=== PATIENT | female | born 2000 | race African-American/Black ===

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

== ENCOUNTER 2022-01-05 20:54 | Emergency (ER) | payer MEDICAID, OTHER ==
[2022-01-05] MEDS ORDERED: diphenhydrAMINE 50 MG/ML VIAL ONE (21:47)
[2022-01-05] MEDS ORDERED: Metoclopramide HCl 10 MG/2 ML VIAL ONE (21:48)
[2022-01-05 22:42] LABS: Bilirubin Neg (Negative); Blood, Urine Negative (Negative); Clarity Clear (Clear); Glucose, Urine (Dipstick) Normal (Negative); Ketone, Urine Negative (Negative); Leukocyte Negative (Negative); Nitrite Negative (Negative); Protein, Urine (Dipstick) Negative (Neg-Trace); Specific Gravity, Urine 1.005 (1.002-1.036); Urobilinogen Normal mg/dL (Less than 2)
== END 2022-01-05 22:40 | disposition home or self-care (01) ==
LOC: CSHERS 20:54
DX: O99.891 Other specified diseases and conditions complicating pregnancy (principal); R51.9 Headache, unspecified; O47.03 False labor before 37 completed weeks of gestation, third trimester; Z3A.32 32 weeks gestation of pregnancy
CPT/HCPCS: 81003; 96365; 96375; J1200; J2765

== ENCOUNTER 2022-01-05 22:18 | Day surgery (SDC) | payer OTHER ==
[2022-01-05 23:41] VITALS: BMI 22.4
[2022-01-06] MEDS ORDERED: hydrALAZINE 20 MG/ML VIAL SLOW IVP PRN (01:11)
== END 2022-01-06 01:15 | disposition home or self-care (01) ==
LOC: CSHLD/OP 22:18
PROVIDERS: ATTEND Family Medicine
DX: O47.03 False labor before 37 completed weeks of gestation, third trimester (principal); O99.891 Other specified diseases and conditions complicating pregnancy; M54.50 Low back pain, unspecified; R51.9 Headache, unspecified; Z3A.32 32 weeks gestation of pregnancy

== ENCOUNTER 2022-01-10 08:10 | Day surgery (SDC) | payer OTHER ==
[2022-01-10 09:12] VITALS: BMI 22.4
[2022-01-10] MEDS ORDERED: Acetaminophen 500 MG TAB PO ONE (09:12)
[2022-01-10] MEDS ORDERED: hydrALAZINE 20 MG/ML VIAL SLOW IVP PRN (09:12)
[2022-01-10] MEDS ORDERED: Ondansetron PF 4 MG/2 ML Vial IVP PRN (09:12)
[2022-01-10] MEDS ORDERED: Lactated Ringer's 1,000 ML IV SCH (09:15)
[2022-01-10] MEDS ORDERED: Ondansetron PF 4 MG/2 ML Vial ONE (09:21)
[2022-01-10] MEDS ORDERED: Promethazine HCl 25 MG/ML VIAL IVPB PRN (11:03)
[2022-01-10 11:08] LABS: Bilirubin Neg (Negative); Blood, Urine Negative (Negative); Clarity Clear (Clear); Glucose, Urine (Dipstick) Normal (Negative); Ketone, Urine Negative (Negative); Leukocyte Negative (Negative); Nitrite Negative (Negative); Protein, Urine (Dipstick) Negative (Neg-Trace); Specific Gravity, Urine 1.005 (1.002-1.036); Urobilinogen Normal mg/dL (Less than 2)
[2022-01-10 11:17] LABS: Urine Culture Reflex No No
[2022-01-10 11:58] LABS: Bacteria/HPF Rare-Few HPF (None Seen); RBC/HPF 0-3 HPF (0-3); Squamous Epithelial 0-3 HPF (0-3); WBC/HPF 0-3 HPF (0-3)
== END 2022-01-10 13:21 | disposition home or self-care (01) ==
LOC: CSHLD/OP 08:10
PROVIDERS: ATTEND Family Medicine
DX: O26.893 Other specified pregnancy related conditions, third trimester (principal); R10.9 Unspecified abdominal pain; O21.2 Late vomiting of pregnancy; O99.513 Diseases of the respiratory system complicating pregnancy, third trimester; J45.909 Unspecified asthma, uncomplicated; Z3A.33 33 weeks gestation of pregnancy; Z79.899 Other long term (current) drug therapy; Z88.5 Allergy status to narcotic agent; Z90.49 Acquired absence of other specified parts of digestive tract
CPT/HCPCS: 81001; 96361; 96365; 96375; 99284; J2405; J2550

== ENCOUNTER 2022-01-13 22:41 | Day surgery (SDC) | payer OTHER ==
[2022-01-13] MEDS ORDERED: hydrALAZINE 20 MG/ML VIAL SLOW IVP PRN (22:44)
[2022-01-13] MEDS ORDERED: Lactated Ringer's 1,000 ML IV SCH (22:45)
[2022-01-13] MEDS ORDERED: Promethazine HCl 25 MG/ML VIAL IM SCH (23:00)
[2022-01-13 23:21] LABS: Bilirubin Neg (Negative); Blood, Urine Negative (Negative); Clarity Clear (Clear); Glucose, Urine (Dipstick) Normal (Negative); Ketone, Urine Negative (Negative); Leukocyte Negative (Negative); Nitrite Negative (Negative); Protein, Urine (Dipstick) Negative (Neg-Trace)
[2022-01-13 23:30] LABS: Bacteria/HPF None Seen HPF (None Seen); RBC/HPF 0-3 HPF (0-3); WBC/HPF 0-3 HPF (0-3)
[2022-01-13] MEDS: Fentanyl 100 MCG/2 ML VIAL SLOW IVP PRN (23:52)
[2022-01-14] MEDS ORDERED: Fentanyl 100 MCG/2 ML VIAL SLOW IVP PRN (00:55)
[2022-01-14] MEDS ORDERED: Lactated Ringer's 1,000 ML IV SCH (01:00)
[2022-01-14] MEDS ORDERED: Fentanyl 100 MCG/2 ML VIAL ONE ×2 (08:25→10:33)
[2022-01-14 08:34] VITALS: BMI 23.1
[2022-01-14 09:01] LABS: Anion Gap 9 mmol/L (10-20); BUN (Urea Nitrogen) 9 mg/dL (8.4-21.0); Calc. Creatinine Clearance 148 mL/min (70-130); Calcium 8.3 mg/dL (7.8-10.44); Carbon Dioxide 23 mmol/L (22-29); Chloride 108 mmol/L (98-107); Estimated GFR 133; Glucose 71 mg/dL (70-105); Potassium 3.9 mmol/L (3.5-5.1); Sodium 136 mmol/L (136-145)
[2022-01-14] MEDS: Fentanyl 100 MCG/2 ML VIAL SLOW IVP PRN (10:51)
[2022-01-14] MEDS ORDERED: Acetaminophen 500 MG TAB PO SCH (13:00)
== END 2022-01-14 16:04 | disposition home health service (06) ==
LOC: CSHLD/OP 22:41
PROVIDERS: ATTEND Family Medicine
DX: O26.893 Other specified pregnancy related conditions, third trimester (principal); R10.9 Unspecified abdominal pain; R39.15 Urgency of urination; O21.2 Late vomiting of pregnancy; Z88.5 Allergy status to narcotic agent; O99.513 Diseases of the respiratory system complicating pregnancy, third trimester; J45.909 Unspecified asthma, uncomplicated; O99.891 Other specified diseases and conditions complicating pregnancy; N13.30 Unspecified hydronephrosis; Z3A.33 33 weeks gestation of pregnancy
CPT/HCPCS: 36415; 74176; 76770; 80048; 81001; J0595; J2550; J3010

== ENCOUNTER 2022-01-17 08:04 | Day surgery (SDC) | payer OTHER ==
[2022-01-17 08:51] VITALS: BMI 24.0
[2022-01-17] MEDS ORDERED: hydrALAZINE 20 MG/ML VIAL SLOW IVP PRN (09:49)
[2022-01-17 09:59] LABS: Bilirubin Neg (Negative); Blood, Urine Negative (Negative); Clarity Slightly Cloudy (Clear); Glucose, Urine (Dipstick) Normal (Negative); Ketone, Urine Negative (Negative); Leukocyte Negative (Negative); Nitrite Negative (Negative); Protein, Urine (Dipstick) Negative (Neg-Trace); Urobilinogen Normal mg/dL (Less than 2)
[2022-01-17] MEDS ORDERED: traMADol HCl 50 MG TAB PO SCH (10:00)
[2022-01-17 10:14] LABS: Bacteria/HPF 2+ HPF (None Seen); RBC/HPF 0-3 HPF (0-3)
[2022-01-17 10:15] LABS: Urine Culture Reflex No No
[2022-01-17] MEDS ORDERED: Promethazine 25 MG TAB PO SCH (11:00)
[2022-01-17 12:01] LABS: Bacteria/HPF None Seen HPF (None Seen); RBC/HPF None Seen HPF (0-3); Squamous Epithelial 0-3 HPF (0-3); WBC/HPF 0-3 HPF (0-3)
== END 2022-01-17 13:27 | disposition home or self-care (01) ==
LOC: CSHLD/OP 08:04
PROVIDERS: ATTEND Family Medicine
DX: O99.891 Other specified diseases and conditions complicating pregnancy (principal); N13.30 Unspecified hydronephrosis; Z3A.34 34 weeks gestation of pregnancy; O99.343 Other mental disorders complicating pregnancy, third trimester; F41.9 Anxiety disorder, unspecified; F31.9 Bipolar disorder, unspecified; O99.513 Diseases of the respiratory system complicating pregnancy, third trimester; J45.909 Unspecified asthma, uncomplicated; Z79.899 Other long term (current) drug therapy; Z88.5 Allergy status to narcotic agent; Z98.890 Other specified postprocedural states
CPT/HCPCS: 51701; 81001; 81015; 99284; Q0169

== ENCOUNTER 2022-01-25 15:02 | Day surgery (SDC) | payer MEDICAID, OTHER ==
[2022-01-25] MEDS ORDERED: hydrALAZINE 20 MG/ML VIAL SLOW IVP PRN (17:03)
[2022-01-25] MEDS ORDERED: Lactated Ringer's 1,000 ML IV SCH (17:15)
[2022-01-25] MEDS ORDERED: Acetaminophen/Codeine 30-300mg Tablet PO SCH (19:00)
[2022-01-25 19:20] LABS: Bilirubin Neg (Negative); Blood, Urine Negative (Negative); Clarity Clear (Clear); Glucose, Urine (Dipstick) Normal (Negative); Ketone, Urine Negative (Negative); Leukocyte Negative (Negative); Nitrite Negative (Negative); Protein, Urine (Dipstick) Negative (Neg-Trace)
[2022-01-25 19:43] LABS: Bacteria/HPF 2+ HPF (None Seen); RBC/HPF 0-3 HPF (0-3); Squamous Epithelial 0-3 HPF (0-3); WBC/HPF 0-3 HPF (0-3)
[2022-01-25 19:44] LABS: Mucous/LPF Rare LPF (<2+)
[2022-01-25] MEDS ORDERED: Mag-Al 1200 mg/1200 mg/30 ML UDCUP PO SCH (20:30)
== END 2022-01-25 21:35 | disposition home or self-care (01) ==
LOC: CSHLD/OP 15:02
PROVIDERS: ATTEND Family Medicine
DX: O99.283 Endocrine, nutritional and metabolic diseases complicating pregnancy, third trimester (principal); E86.0 Dehydration; O36.8130 Decreased fetal movements, third trimester, not applicable or unspecified; O99.891 Other specified diseases and conditions complicating pregnancy; G89.29 Other chronic pain; R10.32 Left lower quadrant pain; O99.513 Diseases of the respiratory system complicating pregnancy, third trimester; J45.909 Unspecified asthma, uncomplicated; Z3A.35 35 weeks gestation of pregnancy; Z88.5 Allergy status to narcotic agent; Z90.49 Acquired absence of other specified parts of digestive tract; Z79.899 Other long term (current) drug therapy
CPT/HCPCS: 81001

== ENCOUNTER 2022-01-28 03:38 | Observation (INO) | payer OTHER ==
[2022-01-28] MEDS ORDERED: hydrALAZINE 20 MG/ML VIAL SLOW IVP PRN (04:15)
[2022-01-28] MEDS ORDERED: Promethazine HCl 25 MG/ML VIAL IM PRN (04:15)
[2022-01-28] MEDS ORDERED: Ondansetron PF 4 MG/2 ML Vial IVP PRN (04:15)
[2022-01-28] MEDS ORDERED: Lactated Ringer's 1,000 ML IV SCH (04:15)
[2022-01-28 05:16] LABS: Mean Corpuscular Volume 77.3 fl (81.6-98.3); Mean Platelet Volume 11.4 fl (7.4-10.4); Platelet Count 191 10x3/uL (150-450); RBC Distribution Width 13.4 % (11.5-14.5); White Blood Cell (WBC) Count 9.3 10x3/uL (3.5-10.5)
[2022-01-28] MEDS: Ondansetron PF 4 MG/2 ML Vial IVP SCH ×4 (05:26→23:50)
[2022-01-28] MEDS: cefTRIAXone\\ROCEPHIN 1 GM in Sodium Chloride 0.9% 100 ML IVPB SCH (05:26)
[2022-01-28] MEDS: Lactated Ringer's 1,000 ML IV SCH ×3 (05:26→22:23)
[2022-01-28 05:40] VITALS: BMI 25.1
[2022-01-28 06:12] LABS: ALT (SGPT) 21 U/L (8-55); AST (SGOT) 21 U/L (5-30); Alkaline Phosphatase 191 U/L (40-100); Anion Gap 12 mmol/L (10-20); BUN (Urea Nitrogen) 8 mg/dL (8.4-21.0); Bilirubin, Total 0.3 mg/dL (0.2-1.2); Calc. Creatinine Clearance 160 mL/min (70-130); Calcium 8.2 mg/dL (7.8-10.44); Carbon Dioxide 22 mmol/L (22-29); Chloride 107 mmol/L (98-107); Estimated GFR 132; Globulin 3.2 g/dL (2.4-3.5); Glucose 71 mg/dL (70-105); Potassium 3.6 mmol/L (3.5-5.1); Protein, Total 6.2 g/dL (6.0-8.3); Sodium 137 mmol/L (136-145)
[2022-01-28 07:33] LABS: SARS-CoV-2 NAA Rapid Test Not Detected (NotDetected)
[2022-01-28] MEDS: Butorphanol Tartrate 1 MG/ML VIAL SLOW IVP PRN ×2 (08:23→14:02)
[2022-01-28 10:35] LABS: Amphetamine Not Detected (NotDetected); Barbiturates Screen Not Detected (NotDetected); Benzodiazepine Screen Not Detected (NotDetected); Cocaine Metabolite Screen Not Detected (NotDetected); Methadone Not Detected (NotDetected); Methamphetamine Not Detected (NotDetected); Opiate Screen Not Detected (NotDetected); Oxycodone Screen Not Detected (NotDetected); Phencyclidine (PCP) Not Detected (NotDetected); THC/Cannabinoid Screen Not Detected (NotDetected); Tricyclic Screen Not Detected (NotDetected)
[2022-01-29] MEDS ORDERED: Acetaminophen/Codeine 30-300mg Tablet PO SCH (03:15)
[2022-01-29] MEDS: cefTRIAXone\\ROCEPHIN 1 GM in Sodium Chloride 0.9% 100 ML IVPB SCH (05:42)
[2022-01-29] MEDS: Lactated Ringer's 1,000 ML IV SCH ×3 (05:42→20:10)
[2022-01-29] MEDS: Ondansetron PF 4 MG/2 ML Vial IVP SCH (05:42)
[2022-01-29] MEDS: Acetaminophen/Codeine 30-300mg Tablet PO PRN ×2 (08:51→12:43)
[2022-01-29] MEDS: Ondansetron ODT 4 MG TAB PO SCH ×4 (10:04→21:54)
[2022-01-29] MEDS ORDERED: Lactated Ringer's 1,000 ML IV SCH (17:00)
[2022-01-29] MEDS: Metoclopramide HCl 10 MG/2 ML VIAL IVP SCH ×2 (17:47→22:55)
[2022-01-29] MEDS: Acetaminophen 500 MG TAB PO SCH ×2 (17:49→22:55)
[2022-01-29 18:30] LABS: Fetal Membranes Rupture No Membranes Rupture (No Rupture)
[2022-01-29] MEDS ORDERED: traZODone HCl 50 MG TAB PO SCH (21:00)
[2022-01-30] MEDS: Ondansetron ODT 4 MG TAB PO SCH ×3 (02:05→09:24)
[2022-01-30] MEDS: Acetaminophen 500 MG TAB PO SCH (03:09)
[2022-01-30] MEDS: Metoclopramide HCl 10 MG/2 ML VIAL IVP SCH (05:15)
[2022-01-30] MEDS: Lactated Ringer's 1,000 ML IV SCH (06:42)
[2022-01-30 07:57] VITALS: BP 112/64; TEMP 98.1
[2022-01-30] MEDS ORDERED: Acetaminophen 500 MG TAB PO SCH (09:00)
== END 2022-01-30 11:10 | disposition home or self-care (01) ==
LOC: CSHLD/OP 03:38 → CSHANTE 06:52 → INTOOBSV 06:52
PROVIDERS: ADMIT Obstetrics & Gynecology; ATTEND Family Medicine
DX: O21.2 Late vomiting of pregnancy (principal); O47.03 False labor before 37 completed weeks of gestation, third trimester; Z3A.35 35 weeks gestation of pregnancy; Z20.822 Contact with and (suspected) exposure to COVID-19; Z79.899 Other long term (current) drug therapy; Z88.5 Allergy status to narcotic agent
CPT/HCPCS: 36415; 59025; 76770; 80053; 80306; 84112; 85027; 96361; 96374; 96375; 96376; 99285; G0378; J0595; J0696; J2405; J2765; J3490; J7120; Q0162; U0002

== ENCOUNTER 2022-01-31 07:28 | Day surgery (SDC) | payer OTHER ==
[2022-01-31 07:52] VITALS: BMI 25.1
[2022-01-31 08:40] LABS: Fetal Membranes Rupture No Membranes Rupture (No Rupture)
[2022-01-31] MEDS ORDERED: hydrALAZINE 20 MG/ML VIAL SLOW IVP PRN (09:42)
== END 2022-01-31 09:25 | disposition home or self-care (01) ==
LOC: CSHLD/OP 07:28
PROVIDERS: ATTEND Family Medicine
DX: O47.03 False labor before 37 completed weeks of gestation, third trimester (principal); O99.891 Other specified diseases and conditions complicating pregnancy; M79.604 Pain in right leg; M79.605 Pain in left leg; Z3A.36 36 weeks gestation of pregnancy
CPT/HCPCS: 84112; 99283

== ENCOUNTER 2022-02-03 09:36 | Day surgery (SDC) | payer OTHER ==
[2022-02-03] MEDS ORDERED: Lactated Ringer's 1,000 ML IV SCH (10:45)
[2022-02-03] MEDS ORDERED: Ondansetron PF 4 MG/2 ML Vial IVP SCH (11:00)
[2022-02-03] MEDS ORDERED: Metoclopramide HCl 10 MG/2 ML VIAL IVP SCH (11:00)
== END 2022-02-03 12:50 | disposition home or self-care (01) ==
LOC: CSHLD/OP 09:36
PROVIDERS: ATTEND Family Medicine
DX: O26.893 Other specified pregnancy related conditions, third trimester (principal); R10.13 Epigastric pain; O21.2 Late vomiting of pregnancy; Z3A.36 36 weeks gestation of pregnancy
CPT/HCPCS: 96360; 96361; 96375; 99282; J2405; J2765

== ENCOUNTER 2022-02-08 13:45 | Inpatient (IN) | payer OTHER ==
[2022-02-08 14:46] VITALS: BMI 25.4
[2022-02-08] MEDS ORDERED: Bicitra 30 ML UDCUP PO PRN (15:08)
[2022-02-08] MEDS ORDERED: hydrALAZINE 20 MG/ML VIAL SLOW IVP PRN ×2 (15:08→21:33)
[2022-02-08] MEDS ORDERED: Famotidine/PF 20 mg/2ml Vial SLOW IVP PRN (15:08)
[2022-02-08] MEDS ORDERED: Promethazine HCl 25 MG/ML VIAL IM PRN ×3 (15:08→21:33)
[2022-02-08] MEDS ORDERED: Ondansetron PF 4 MG/2 ML Vial IVP PRN ×3 (15:08→21:33)
[2022-02-08] MEDS: Lactated Ringer's 1,000 ML IV SCH (15:30)
[2022-02-08 15:41] LABS: Hemoglobin 9.8 g/dL (12.0-15.5); Mean Corpuscular HGB CONC 32.7 g/dL (32.0-36.0); Mean Corpuscular Hemoglobin 25.9 pg (27.0-33.0); Mean Corpuscular Volume 79.4 fl (81.6-98.3); Mean Platelet Volume 11.5 fl (7.4-10.4); Platelet Count 172 10x3/uL (150-450); RBC Distribution Width 13.4 % (11.5-14.5); Red Blood Cell (RBC) Count 3.78 10x6/uL (3.90-5.03); White Blood Cell (WBC) Count 8.5 10x3/uL (3.5-10.5)
[2022-02-08 16:14] LABS: Syphilis Antibody Nonreactive (Nonreactive); Syphilis Antibody Index 0.04 S/CO (<1.00 Non-Reactive)
[2022-02-08 16:15] LABS: HBSAg Index 0.18 S/CO (0-0.99); Hep B Surf Ag Non-Reactive S/CO (NonReactive)
[2022-02-08] MEDS ORDERED: Sodium Chloride 0.9% 100 ML ONE (16:24)
[2022-02-08] MEDS ORDERED: CEFAZOLIN 2 GM VIAL ONE (16:24)
[2022-02-08] MEDS ORDERED: CEFAZOLIN 2 GM in Sodium Chloride 0.9% 100 ML IVPB SCH (16:30)
[2022-02-08 16:43] LABS: SARS-CoV-2 NAA Rapid Test Not Detected (NotDetected)
[2022-02-08] MEDS ORDERED: PHENYLEPHRINE-NS 100 MCG/ML 10 ML SYRINGE ONE (17:20)
[2022-02-08] MEDS ORDERED: Oxytocin 10 UNITS/ML VIAL ONE (17:20)
[2022-02-08] MEDS ORDERED: Fentanyl 100 MCG/2 ML VIAL ONE (17:20)
[2022-02-08] MEDS ORDERED: Morphine PF 10 MG/10 ML VIAL ONE (17:20)
[2022-02-08] MEDS ORDERED: ePHEDrine Sulfate 50 MG/10 ML VIAL ONE (17:20)
[2022-02-08] MEDS ORDERED: Ondansetron PF 4 MG/2 ML Vial ONE (17:20)
[2022-02-08] MEDS ORDERED: Dexamethasone 4 mg/ml Vial ONE (17:20)
[2022-02-08] MEDS ORDERED: Promethazine HCl 25 MG/ML VIAL ONE (17:59)
[2022-02-08] MEDS ORDERED: Ketorolac Tromethamine 30 MG/ML VIAL ONE (18:02)
[2022-02-08] MEDS ORDERED: diphenhydrAMINE 50 MG/ML VIAL ONE (18:08)
[2022-02-08] MEDS ORDERED: Ketorolac Tromethamine 30 MG/ML VIAL IVP PRN (19:39)
[2022-02-08] MEDS ORDERED: Ondansetron HCl/PF 4 MG/2 ML Vial IVP PRN (19:39)
[2022-02-08] MEDS ORDERED: Naloxone HCl 0.4 mg/ml Vial IV PRN (19:39)
[2022-02-08] MEDS ORDERED: HYDROmorphone 2 MG/ML VIAL SLOW IVP PRN (19:39)
[2022-02-08] MEDS ORDERED: Promethazine HCl 25 MG SUPP PR PRN (19:39)
[2022-02-08] MEDS ORDERED: Fentanyl 100 MCG/2 ML VIAL SLOW IVP PRN (19:39)
[2022-02-08] MEDS ORDERED: diphenhydrAMINE 50 MG/ML VIAL IVP PRN (19:39)
[2022-02-08] MEDS ORDERED: Naloxone HCl 0.4 mg/ml Vial IVP PRN ×2 (19:39)
[2022-02-08] MEDS ORDERED: Moisturizing Cream (Eucerin) 113 GM JAR TOP PRN (19:39)
[2022-02-08] MEDS ORDERED: Ketorolac Tromethamine 30 MG/ML VIAL IVP SCH (19:45)
[2022-02-08] MEDS ORDERED: Communication Order-Pharmacy FS SCH (19:45)
[2022-02-08] MEDS: Fentanyl 100 MCG/2 ML VIAL ONE ×2 (20:30→20:32)
[2022-02-08] MEDS ORDERED: Bisacodyl 10 MG SUPP PR PRN (21:33)
[2022-02-08] MEDS ORDERED: NS w/ Oxytocin 30 units 500 ML IV SCH (21:33)
[2022-02-08] MEDS ORDERED: diphenhydrAMINE 25 MG CAP PO PRN (21:33)
[2022-02-08] MEDS ORDERED: Boostrix 0.5 ML (Tdap) VIAL (>/=7 yrs of age) IM ONE (21:33)
[2022-02-08] MEDS ORDERED: Docusate 100 MG CAP PO SCH (21:45)
[2022-02-08] MEDS ORDERED: Ferrous Sulfate 325 MG TAB PO SCH (21:45)
[2022-02-08] MEDS: metroNIDAZOLE 500 MG in Premix Bag 1 BAG IVPB SCH (21:47)
[2022-02-08] MEDS: Ketorolac Tromethamine 30 MG/ML VIAL IVP SCH (23:43)
[2022-02-09] MEDS: Lactated Ringer's 1,000 ML IV SCH ×4 (00:28→23:23)
[2022-02-09] MEDS: CEFAZOLIN 2 GM in Sodium Chloride 0.9% 100 ML IVPB SCH ×3 (01:55→16:13)
[2022-02-09] MEDS: metroNIDAZOLE 500 MG in Premix Bag 1 BAG IVPB SCH ×3 (04:10→21:33)
[2022-02-09 05:58] LABS: Hemoglobin 9.1 g/dL (12.0-15.5); Mean Corpuscular HGB CONC 33.2 g/dL (32.0-36.0); Mean Corpuscular Hemoglobin 25.9 pg (27.0-33.0); Mean Corpuscular Volume 78.1 fl (81.6-98.3); Mean Platelet Volume 11.7 fl (7.4-10.4); Platelet Count 164 10x3/uL (150-450); RBC Distribution Width 13.2 % (11.5-14.5); Red Blood Cell (RBC) Count 3.51 10x6/uL (3.90-5.03); White Blood Cell (WBC) Count 11.7 10x3/uL (3.5-10.5)
[2022-02-09] MEDS: Ketorolac Tromethamine 30 MG/ML VIAL IVP SCH ×3 (06:01→18:24)
[2022-02-09] MEDS ORDERED: HYDROcodone/Acetaminophen 5/325 mg Tablet PO PRN (07:45)
[2022-02-09] MEDS: Simethicone Chewable 80 MG TAB PO PRN ×2 (08:41→21:41)
[2022-02-09] MEDS: Ferrous Sulfate 325 MG TAB PO SCH ×2 (08:41→21:34)
[2022-02-09] MEDS: HYDROcodone/Acetaminophen 5/325 mg Tablet PO PRN ×2 (08:42→16:10)
[2022-02-09] MEDS: Docusate 100 MG CAP PO SCH ×2 (08:42→21:34)
[2022-02-09] MEDS ORDERED: CEFAZOLIN 2 GM VIAL ONE (11:14)
[2022-02-09] MEDS: Ibuprofen 800 MG TAB PO SCH (21:34)
[2022-02-10] MEDS: HYDROcodone/Acetaminophen 5/325 mg Tablet PO PRN ×3 (01:01→13:11)
[2022-02-10] MEDS: CEFAZOLIN 2 GM in Sodium Chloride 0.9% 100 ML IVPB SCH ×2 (01:57→13:12)
[2022-02-10] MEDS: metroNIDAZOLE 500 MG in Premix Bag 1 BAG IVPB SCH ×2 (04:46→13:12)
[2022-02-10] MEDS: Ibuprofen 800 MG TAB PO SCH ×3 (05:02→21:51)
[2022-02-10] MEDS: Docusate 100 MG CAP PO SCH ×2 (09:37→21:51)
[2022-02-10] MEDS: Ferrous Sulfate 325 MG TAB PO SCH ×2 (13:12→21:51)
[2022-02-10] MEDS: Cephalexin 500 MG CAP PO SCH ×2 (15:25→21:50)
[2022-02-10] MEDS: metroNIDAZOLE 500 MG TAB PO SCH ×2 (15:25→21:51)
[2022-02-10] MEDS: Lactated Ringer's 1,000 ML IV SCH ×2 (19:18→19:19)
[2022-02-11] MEDS: HYDROcodone/Acetaminophen 5/325 mg Tablet PO PRN ×2 (01:13→09:22)
[2022-02-11] MEDS: Ibuprofen 800 MG TAB PO SCH ×2 (05:24→14:02)
[2022-02-11] MEDS: Lactated Ringer's 1,000 ML IV SCH (06:53)
[2022-02-11 08:19] VITALS: BP 114/56; TEMP 98.1
[2022-02-11] MEDS: Docusate 100 MG CAP PO SCH (09:21)
[2022-02-11] MEDS: Ferrous Sulfate 325 MG TAB PO SCH (09:21)
[2022-02-11] MEDS: Simethicone Chewable 80 MG TAB PO PRN (09:22)
[2022-02-11] MEDS: Cephalexin 500 MG CAP PO SCH (09:31)
[2022-02-11] MEDS: metroNIDAZOLE 500 MG TAB PO SCH (09:35)
== END 2022-02-11 14:30 | disposition home or self-care (01) | DRG 788 ==
LOC: CSHLD/OP 13:45 → CSHLD 15:09 → CSHPP 20:55
PROVIDERS: ADMIT Family Medicine; ATTEND Family Medicine
PROC: 10D00Z1 Extraction of Products of Conception, Low, Open Approach (ICD-10-PCS; principal; 2022-02-08)
PROC: 3E0334Z Introduction of Serum, Toxoid and Vaccine into Peripheral Vein, Percutaneous Approach (ICD-10-PCS; 2022-02-09)
DX: O34.211 Maternal care for low transverse scar from previous cesarean delivery (principal); Z3A.37 37 weeks gestation of pregnancy; Z37.0 Single live birth; Z20.822 Contact with and (suspected) exposure to COVID-19; K66.0 Peritoneal adhesions (postprocedural) (postinfection); O99.62 Diseases of the digestive system complicating childbirth; O26.893 Other specified pregnancy related conditions, third trimester; Z67.21 Type B blood, Rh negative
CPT/HCPCS: 36415; 51702; 85027; 85461; 86780; 86850; 86870; 86900; 86901; 87340; 90384; 96372; 99285; J0690; J1100; J1200; J1885; J2274; J2405; J2550; J2590; J3010; J3490; J7120; S0028; U0002

== ENCOUNTER 2022-02-13 23:43 | Inpatient (IN) | payer OTHER ==
[2022-02-14] MEDS ORDERED: Ketorolac Tromethamine 30 MG/ML VIAL ONE (00:19)
[2022-02-14 00:20] LABS: #Eosinphils 0.1 10x3/uL (0.0-0.5); #Monocytes 1.3 10x3/uL (0.0-1.1); #Neutrophils 9.8 10x3/uL (1.5-8.4); %Basophils 0.1 % (0.0-2.0); %Eosinophils 0.5 % (0.0-6.0); %Lymphocytes 13.8 % (18.0-47.0); %Monocytes 9.7 % (0.0-10.0); %Neutrophils 73.7 % (40.0-75.0); Hemoglobin 6.5 g/dL (12.0-15.5); Mean Corpuscular HGB CONC 32.7 g/dL (32.0-36.0); Mean Corpuscular Hemoglobin 26.2 pg (27.0-33.0); Mean Corpuscular Volume 80.2 fl (81.6-98.3); Platelet Count 267 10x3/uL (150-450); RBC Distribution Width 13.9 % (11.5-14.5); Red Blood Cell (RBC) Count 2.48 10x6/uL (3.90-5.03); White Blood Cell (WBC) Count 13.4 10x3/uL (3.5-10.5)
[2022-02-14] MEDS ORDERED: Ondansetron PF 4 MG/2 ML Vial ONE (00:20)
[2022-02-14 00:37] LABS: ALT (SGPT) 12 U/L (8-55); AST (SGOT) 13 U/L (5-30); Albumin 3.2 g/dL (3.5-5.0); Alkaline Phosphatase 141 U/L (40-100); Anion Gap 13 mmol/L (10-20); BUN (Urea Nitrogen) 10 mg/dL (8.4-21.0); Bilirubin, Total 0.4 mg/dL (0.2-1.2); Calc. Creatinine Clearance 0 mL/min (70-130); Calcium 8.6 mg/dL (7.8-10.44); Carbon Dioxide 20 mmol/L (22-29); Chloride 109 mmol/L (98-107); Estimated GFR 132; Globulin 3.4 g/dL (2.4-3.5); Glucose 91 mg/dL (70-105); Protein, Total 6.6 g/dL (6.0-8.3); Sodium 138 mmol/L (136-145)
[2022-02-14] MEDS ORDERED: Fentanyl 100 MCG/2 ML VIAL ONE (00:48)
[2022-02-14] MEDS ORDERED: Promethazine HCl 25 MG/ML VIAL IM PRN (02:11)
[2022-02-14] MEDS ORDERED: Ondansetron PF 4 MG/2 ML Vial IVP PRN (02:11)
[2022-02-14] MEDS ORDERED: hydrALAZINE 20 MG/ML VIAL SLOW IVP PRN (02:11)
[2022-02-14] MEDS ORDERED: HYDROcodone/Acetaminophen 5/325 mg Tablet PO PRN (02:13)
[2022-02-14 02:33] VITALS: BMI 25.0
[2022-02-14] MEDS: Lactated Ringer's 1,000 ML IV SCH ×3 (03:00→18:52)
[2022-02-14] MEDS ORDERED: Lactated Ringer's 1,000 ML IV SCH (03:00)
[2022-02-14 03:31] LABS: SARS-CoV-2 NAA Rapid Test Not Detected (NotDetected)
[2022-02-14 04:11] LABS: Bilirubin Neg (Negative); Blood, Urine Negative (Negative); Clarity Clear (Clear); Glucose, Urine (Dipstick) Normal (Negative); Ketone, Urine Negative (Negative); Leukocyte Negative (Negative); Nitrite Negative (Negative); Protein, Urine (Dipstick) Negative (Neg-Trace); Specific Gravity, Urine 1.005 (1.005-1.030); Urobilinogen Normal mg/dL (Less than 2); pH, Urine 6.5 (5.0-9.0)
[2022-02-14 04:36] LABS: Bacteria/HPF None Seen HPF (None Seen); RBC/HPF 0-3 HPF (0-3); Squamous Epithelial 0-3 HPF (0-3); WBC/HPF 0-3 HPF (0-3)
[2022-02-14] MEDS ORDERED: GENTAMICIN IVPB SCH (07:00)
[2022-02-14] MEDS ORDERED: SODIUM CHLORIDE 0.9% IVPB SCH (07:00)
[2022-02-14] MEDS: HYDROcodone/Acetaminophen 7.5/325 mg Tablet PO PRN ×3 (08:16→22:07)
[2022-02-14] MEDS: SODIUM CHLORIDE 0.9% IVPB SCH (08:21)
[2022-02-14] MEDS: GENTAMICIN SULFATE IVPB SCH (08:21)
[2022-02-14] MEDS ORDERED: Iopamidol 300 61% 100 ML VIAL FS ONE (09:33)
[2022-02-14 12:09] LABS: Hemoglobin 6.8 g/dL (12.0-15.5); Mean Corpuscular HGB CONC 32.9 g/dL (32.0-36.0); Mean Corpuscular Volume 82.1 fl (81.6-98.3); Platelet Count 232 10x3/uL (150-450); RBC Distribution Width 14.3 % (11.5-14.5); Red Blood Cell (RBC) Count 2.52 10x6/uL (3.90-5.03); White Blood Cell (WBC) Count 12.1 10x3/uL (3.5-10.5)
[2022-02-14] MEDS ORDERED: diphenhydrAMINE 50 MG/ML VIAL IVP SCH (12:15)
[2022-02-14] MEDS ORDERED: Metoclopramide HCl 10 MG/2 ML VIAL IVP SCH (12:15)
[2022-02-14] MEDS ORDERED: Ketorolac Tromethamine 30 MG/ML VIAL IVP SCH (12:15)
[2022-02-14] MEDS ORDERED: Ondansetron PF 4 MG/2 ML Vial IVP SCH (12:15)
[2022-02-14] MEDS: Ampicillin 2 GM in Sodium Chloride 0.9% 100 ML IVPB SCH ×2 (12:54→18:46)
[2022-02-14] MEDS ORDERED: Clindamycin/D5W 900 MG in Premix Bag 1 BAG IVPB SCH (14:00)
[2022-02-14] MEDS: Ibuprofen 800 MG TAB PO PRN (19:43)
[2022-02-14 21:25] LABS: Hemoglobin 7.9 g/dL (12.0-15.5)
[2022-02-15] MEDS: Ampicillin 2 GM in Sodium Chloride 0.9% 100 ML IVPB SCH ×4 (00:14→17:35)
[2022-02-15] MEDS: Clindamycin/D5W 900 MG in Premix Bag 1 BAG IVPB SCH ×4 (00:50→23:41)
[2022-02-15] MEDS: Lactated Ringer's 1,000 ML IV SCH (03:00)
[2022-02-15] MEDS: Ibuprofen 800 MG TAB PO PRN ×3 (06:01→21:33)
[2022-02-15] MEDS: HYDROcodone/Acetaminophen 7.5/325 mg Tablet PO PRN ×6 (06:01→23:40)
[2022-02-15] MEDS: GENTAMICIN SULFATE IVPB SCH (08:48)
[2022-02-15] MEDS: SODIUM CHLORIDE 0.9% IVPB SCH (08:48)
[2022-02-15] MEDS: Sodium Chloride 0.9% 1,000 ML IV SCH (11:42)
[2022-02-16] MEDS: Ampicillin 2 GM in Sodium Chloride 0.9% 100 ML IVPB SCH ×3 (00:38→12:17)
[2022-02-16] MEDS: Sodium Chloride 0.9% 1,000 ML IV SCH ×2 (00:39→09:50)
[2022-02-16] MEDS: HYDROcodone/Acetaminophen 7.5/325 mg Tablet PO PRN ×3 (03:47→13:57)
[2022-02-16 06:02] LABS: #Eosinphils 0.1 10x3/uL (0.0-0.5); #Monocytes 0.8 10x3/uL (0.0-1.1); #Neutrophils 6.5 10x3/uL (1.5-8.4); %Basophils 0.3 % (0.0-2.0); %Eosinophils 0.7 % (0.0-6.0); %Lymphocytes 20.6 % (18.0-47.0); %Neutrophils 69.3 % (40.0-75.0); Hemoglobin 8.9 g/dL (12.0-15.5); Mean Corpuscular HGB CONC 32.8 g/dL (32.0-36.0); Mean Corpuscular Hemoglobin 26.6 pg (27.0-33.0); Mean Corpuscular Volume 81.1 fl (81.6-98.3); Mean Platelet Volume 10.1 fl (7.4-10.4); Platelet Count 306 10x3/uL (150-450); Red Blood Cell (RBC) Count 3.34 10x6/uL (3.90-5.03); White Blood Cell (WBC) Count 9.4 10x3/uL (3.5-10.5)
[2022-02-16] MEDS: Clindamycin/D5W 900 MG in Premix Bag 1 BAG IVPB SCH (08:38)
[2022-02-16] MEDS: SODIUM CHLORIDE 0.9% IVPB SCH (09:12)
[2022-02-16] MEDS: GENTAMICIN SULFATE IVPB SCH (09:12)
[2022-02-16] MEDS ORDERED: Hydrocortisone Acetate 25 MG Suppository PR PRN (10:39)
[2022-02-16] MEDS: Ibuprofen 800 MG TAB PO PRN (13:56)
[2022-02-16 16:28] VITALS: BP 126/68; TEMP 98.7
== END 2022-02-16 17:40 | disposition home or self-care (01) | DRG 776 ==
LOC: CSHERS 23:43 → CSHPP 02-14 01:43 → OBSVTOIN 02-14 07:47
PROVIDERS: ADMIT Obstetrics & Gynecology; ATTEND Obstetrics & Gynecology
PROC: 30233N1 Transfusion of Nonautologous Red Blood Cells into Peripheral Vein, Percutaneous Approach (ICD-10-PCS; principal; 2022-02-14)
DX: O86.12 Endometritis following delivery (principal); D62 Acute posthemorrhagic anemia; L76.32 Postprocedural hematoma of skin and subcutaneous tissue following other procedure; F41.9 Anxiety disorder, unspecified; J45.909 Unspecified asthma, uncomplicated; F31.9 Bipolar disorder, unspecified; R39.15 Urgency of urination; K64.9 Unspecified hemorrhoids; Z98.891 History of uterine scar from previous surgery; Z90.49 Acquired absence of other specified parts of digestive tract; Z88.6 Allergy status to analgesic agent; Z98.890 Other specified postprocedural states; Z20.822 Contact with and (suspected) exposure to COVID-19; O90.81 Anemia of the puerperium; O90.89 Other complications of the puerperium, not elsewhere classified; O99.345 Other mental disorders complicating the puerperium; O99.53 Diseases of the respiratory system complicating the puerperium; O99.63 Diseases of the digestive system complicating the puerperium; O90.0 Disruption of cesarean delivery wound
CPT/HCPCS: 36415; 36430; 71046; 74177; 80053; 81001; 85025; 86850; 86870; 86900; 86901; 86922; 93970; 96374; 96375; G0378; J0290; J1200; J1580; J1885; J2405; J2765; J3010; J3490; J7050; J7120; P9016; Q9967; U0002

== ENCOUNTER 2022-03-01 06:50 | Inpatient (IN) | payer OTHER ==
[2022-03-01] MEDS ORDERED: Boostrix 0.5 ML (Tdap) VIAL (>/=7 yrs of age) IM ONE (08:56)
[2022-03-01] MEDS ORDERED: Promethazine HCl 25 MG/ML VIAL IM PRN (08:56)
[2022-03-01] MEDS ORDERED: Ondansetron PF 4 MG/2 ML Vial IVP PRN (09:06)
[2022-03-01] MEDS: Ampicillin 2 GM in Sodium Chloride 0.9% 100 ML IVPB SCH ×2 (10:40→16:48)
[2022-03-01] MEDS: Ibuprofen 800 MG TAB PO PRN ×2 (10:40→21:58)
[2022-03-01] MEDS: Ferrous Sulfate 325 MG TAB PO SCH ×3 (10:41→23:35)
[2022-03-01] MEDS: HYDROcodone/Acetaminophen 5/325 mg Tablet PO PRN ×3 (10:41→21:59)
[2022-03-01] MEDS: Docusate 100 MG CAP PO SCH ×2 (10:46→23:35)
[2022-03-01] MEDS: Lactated Ringer's 1,000 ML IV SCH ×2 (10:47→22:00)
[2022-03-01] MEDS: Gentamicin 280 MG in Sodium Chloride 0.9% 100 ML IVPB SCH (11:27)
[2022-03-01] MEDS ORDERED: Lactated Ringer's 1,000 ML IV SCH (13:00)
[2022-03-01] MEDS: metroNIDAZOLE 500 MG in Premix Bag 1 BAG IVPB SCH ×2 (13:14→21:59)
[2022-03-02] MEDS: Ampicillin 2 GM in Sodium Chloride 0.9% 100 ML IVPB SCH ×4 (00:08→18:45)
[2022-03-02] MEDS: Ibuprofen 800 MG TAB PO PRN ×3 (05:04→21:23)
[2022-03-02] MEDS: metroNIDAZOLE 500 MG in Premix Bag 1 BAG IVPB SCH ×3 (05:05→21:16)
[2022-03-02 05:58] LABS: #Eosinphils 0.1 10x3/uL (0.0-0.5); #Monocytes 0.4 10x3/uL (0.0-1.1); #Neutrophils 3.3 10x3/uL (1.5-8.4); %Basophils 0.7 % (0.0-2.0); %Eosinophils 1.6 % (0.0-6.0); %Lymphocytes 35.9 % (18.0-47.0); %Monocytes 6.7 % (0.0-10.0); %Neutrophils 54.8 % (40.0-75.0); Hemoglobin 10.8 g/dL (12.0-15.5); Mean Corpuscular Hemoglobin 25.6 pg (27.0-33.0); Mean Corpuscular Volume 82.5 fl (81.6-98.3); Platelet Count 399 10x3/uL (150-450); RBC Distribution Width 14.2 % (11.5-14.5); Red Blood Cell (RBC) Count 4.22 10x6/uL (3.90-5.03); White Blood Cell (WBC) Count 6.1 10x3/uL (3.5-10.5)
[2022-03-02] MEDS: Lactated Ringer's 1,000 ML IV SCH ×2 (06:12→08:58)
[2022-03-02] MEDS: HYDROcodone/Acetaminophen 5/325 mg Tablet PO PRN ×3 (08:43→21:15)
[2022-03-02] MEDS: Docusate 100 MG CAP PO SCH ×2 (08:45→21:16)
[2022-03-02] MEDS: Gentamicin 280 MG in Sodium Chloride 0.9% 100 ML IVPB SCH (10:46)
[2022-03-02] MEDS: Sodium Chloride 0.9% 1,000 ML IV SCH ×2 (12:34→22:38)
[2022-03-02] MEDS ORDERED: metroNIDAZOLE 500 MG/100 ML BAG ONE (14:12)
[2022-03-02] MEDS: Ferrous Sulfate 325 MG TAB PO SCH (21:20)
[2022-03-03] MEDS: Ampicillin 2 GM in Sodium Chloride 0.9% 100 ML IVPB SCH ×4 (00:07→18:16)
[2022-03-03] MEDS: Ibuprofen 800 MG TAB PO PRN ×2 (05:02→14:02)
[2022-03-03] MEDS: metroNIDAZOLE 500 MG in Premix Bag 1 BAG IVPB SCH ×3 (05:03→21:39)
[2022-03-03] MEDS: Sodium Chloride 0.9% 1,000 ML IV SCH ×3 (06:17→21:43)
[2022-03-03] MEDS: HYDROcodone/Acetaminophen 5/325 mg Tablet PO PRN (09:09)
[2022-03-03] MEDS: Docusate 100 MG CAP PO SCH ×2 (09:10→21:39)
[2022-03-03] MEDS: Ferrous Sulfate 325 MG TAB PO SCH ×2 (09:10→18:58)
[2022-03-03] MEDS: Gentamicin 280 MG in Sodium Chloride 0.9% 100 ML IVPB SCH (10:55)
[2022-03-03 19:28] VITALS: BP 115/76; TEMP 98.3
== END 2022-03-03 22:30 | disposition left against medical advice (07) | DRG 776 ==
LOC: CSHPP 06:50
PROVIDERS: ADMIT Obstetrics & Gynecology; ATTEND Obstetrics & Gynecology
DX: O90.2 Hematoma of obstetric wound (principal); F31.9 Bipolar disorder, unspecified; Z79.899 Other long term (current) drug therapy; F41.9 Anxiety disorder, unspecified; Z90.49 Acquired absence of other specified parts of digestive tract
CPT/HCPCS: J0290; J1580; J3490; J7050; J7120

== ENCOUNTER 2024-05-05 12:53 | Emergency (ER) | payer OTHER ==
[2024-05-05] MEDS ORDERED: Ibuprofen 200 MG TAB ONE (14:17)
== END 2024-05-05 14:20 | disposition home or self-care (01) ==
LOC: CSHERS 12:53
DX: K42.9 Umbilical hernia without obstruction or gangrene (principal); Z87.891 Personal history of nicotine dependence
CPT/HCPCS: 99283